=== PATIENT | female | born 1970 | race Caucasian/White ===

== ENCOUNTER → 2016-07-07 | Outpatient (CLI) | payer OTHER ==
--- NOTE | 2016-07-07 13:09 | MA ---
Diagnostic Digital Mammogram left Breast Clinical Indications: Focal parenchymal asymmetry medial left breast. Technique: Compression was obtained in CC, along with rolled views left breast in the cc projection, and 90-degree lateral views of the left breast. This examination is processed by the [employer] computer-a ided detection system. Comparison: June 29, 2016 Breast density: C; The breasts are heterogeneously dense, which may obscure small masses. Findings: CAD was reviewed. The density of concern appears to represent normal overlapping breast parenchymal tissue. However, a mass cannot be completely excluded. On the rolled views, the density in is probably projected superio rly although this is not confirmed on the 90 degree lateral view obtained. Impression: Persistent density medial left breast that on the rolled views appears to be associated w ith a superior density. While this most likely just represents asymmetric normal breast parenchymal t issue, the possibility of a mass cannot be completely excluded. Consider ultrasound of the upper inne r left breast to confirm normal breast parenchymal tissue and there is no underlying mass in this reg ion. These findings were communicated with the patient. Recommendation: Ultrasound upper inner left breast is recommended. Secondary to the patient's work s chedule, this could not be performed at this time. If subsequent ultrasound proves to be negative the n 6 month followup mammogram views of the left breast can be performed to confirm stability. BI-RADS 0 [facility] will send a result letter to the patient. Negative mammography should not preclude additional workup of a clinically suspicious finding.
== END ==
LOC: BMCIMAGING 12:13
DX: R92.8 Other abnormal and inconclusive findings on diagnostic imaging of breast (principal)
CPT/HCPCS: G0206

== ENCOUNTER → 2016-07-14 | Outpatient (CLI) | payer OTHER ==
--- NOTE | 2016-07-14 13:30 | US ---
Ultrasound left breast History: Asymmetric tissue upper inner left breast. Rule out mass. Findings: Ultrasound of the upper inner quadrant of the left breast and measures normal underlying br east parenchymal tissue without significant solid or cystic mass. Impression: Benign findings at ultrasound. However, considering the probably benign mammographic appe arance of an asymmetric density upper inner left breast from baseline mammographic study, 6 month kellen mographic views of the left breast in CC and MLO projections is recommended to confirm stability and benign features. BI-RADS 3 The results of this study were reviewed with the patient.
== END ==
LOC: BMCIMAGING 12:38
DX: R92.8 Other abnormal and inconclusive findings on diagnostic imaging of breast (principal)

== ENCOUNTER → 2017-01-14 | Outpatient (CLI) | payer OTHER | LOC: BMCIMAGING 09:43 | PROVIDERS: ATTEND Internal Medicine | DX: R92.8 Other abnormal and inconclusive findings on diagnostic imaging of breast (principal) | CPT/HCPCS: G0206 ==

== ENCOUNTER → 2017-02-07 | Outpatient (CLI) | payer OTHER | LOC: BMCIMAGING 08:21 | PROVIDERS: ATTEND Internal Medicine | DX: M25.531 Pain in right wrist (principal) ==

== ENCOUNTER → 2017-07-20 | Outpatient (CLI) | payer OTHER | LOC: BMCIMAGING 07:57 | PROVIDERS: ATTEND Internal Medicine | DX: Z12.31 Encounter for screening mammogram for malignant neoplasm of breast (principal); Z12.2 Encounter for screening for malignant neoplasm of respiratory organs; Z80.1 Family history of malignant neoplasm of trachea, bronchus and lung ==

== ENCOUNTER → 2018-07-24 | Outpatient (CLI) | payer OTHER | LOC: BMCIMAGING 08:29 | PROVIDERS: ATTEND Internal Medicine | DX: Z12.31 Encounter for screening mammogram for malignant neoplasm of breast (principal) ==

== ENCOUNTER → 2018-09-01 | Outpatient (CLI) | payer OTHER | LOC: FIMAGING 08:29 ==